=== PATIENT | female | born 1985 | race Hispanic/Latino ===

== ENCOUNTER 2016-11-01 06:42 | Inpatient (IN) | payer MEDICAID ==
[~2016-11-01] VITALS: Ht 147.3 cm; Wt 90.9 kg
[~2016-11-01 06:42] MED LIST: Carboprost 250 mCg/mL Inj IM PRN; Hemorrhage Kit, Post Partum XX ONE; Lactated Ringer's 1,000 ML IV SCH; Lidocaine 2% 5 mL Topical Jelly MUC_MEMBRM ONE; Methylergonovine 0.2 mg/mL Inj IM PRN; Oxytocin 10 Unit/mL Inj IM PRN; PREN-54 PO; Sodium Citrate-Citric Acid 30 mL Solution PO SCH
[2016-11-01] MEDS ORDERED: CeFAZolin Inj 2 GM in IV Premix 1 EACH IV ONE (07:10)
[2016-11-01] MEDS ORDERED: Atropine 0.4 mg/mL Inj IV PRN (07:15)
[2016-11-01] MEDS ORDERED: MetoCLOpramide 5 mg/mL 2 mL Inj IVPUSH PRN (07:15)
[2016-11-01] MEDS ORDERED: EPHEDrine Sulfate 50 mg/mL Inj IVPUSH PRN ×2 (07:15→08:50)
[2016-11-01] MEDS ORDERED: Ondansetron 2 mg/mL 2 mL Inj IVPUSH PRN (07:15)
[2016-11-01] MEDS ORDERED: fentaNYL-PF 50 mCg/mL 2 mL Inj IVPUSH PRN (07:15)
[2016-11-01] MEDS ORDERED: Morphine PF 1 mg/mL 10 mL Inj ONE (07:31)
[2016-11-01 07:40] LABS: Mean Corpuscular Hemoglobin 30.1 pg (27.0-35.0); Mean Corpuscular Volume 89.1 fL (81-100)
--- NOTE | 2016-11-01 07:49 | PCM.HPOB ---
Subjective Referring Provider: Admitting Physician: Jemima Castanon MD Primary Care Physician: Nopcp Attending Physician: Jemima Castanon MD Chief Complaint Admit for Primary Delivery History of Present History of Present Illness Belkys is a 31 y/o 4 para 2-1-0-3 who is currently at 38weeks gestation with a history of gestational diabetes which is now controlled on metformin and Lantus insulin. She has been followed by Dr. Carrasquillo at the [facility] and he has recommended that she have a primary delivery due to macrosomia and polyhydramnios. He recommended delivery at 38 weeks gestation. She has a history of a previous maternal atrial septal defect but has had no problems with her previous vaginal deliveries. She's had gestational hypertension with her past pregnancies. Her blood pressures during this so far have been normal. She is scheduled for a primary low transverse delivery with bilateral tubal ligation on 11/01/2016. Past Medical History Obstetrical History: see [employer] Record Gynecologic History: see [employer] Record Medical History: see [employer] Record Surgical History: none Hx Tobacco Use: No Hx Alcohol Use: No Hx Substance Use: No Past Family History Living Arrangement: with Family Allergy Coded Allergies: No Known Allergies (Verified , 08/21/14) Exam Constitutional: Well-developed, Well-nourished HEENT: Atraumatic Lungs: Clear to Auscultation Heart: Exam Unremarkable Abdomen: Gravid Neurological/Psychiatric: Alert, Oriented X3, Cooperative, No Acute Distress Labs/Diagnostics Maternal Blood Type: O (Positive) Antibody Screen: Negative Group B Strep Results: Positive Rubella: Immune Additional Information HIV negative, Hep C Negative, Hep B sag negative, TSH 0.983, Varicella non- immune OB Intrapartum Assessment/Plan Problems: (1) Macrosomia affecting management of mother Plan: Plan for primary delivery per [facility] recommendations for Macrosomia , Polyhydramnios and GDM. Status: Acute ICD Code: O36.60X0 (2) GDM (gestational diabetes mellitus) Status: Acute ICD Code: O24.419 (3) Polyhydramnios affecting Status: Acute ICD Code: O40.9XX0 Jemima Castanon MD November 01, 2016 07:49
[2016-11-01] MEDS: Sodium Citrate-Citric Acid 15 mL Solution PO SCH (07:54)
[2016-11-01] MEDS ORDERED: Morphine PF 1 mg/mL 10 mL Inj INTRATHEC ONE (08:10)
[2016-11-01] MEDS ORDERED: Lactated Ringer's 1,000 ML IV PRN (08:48)
--- NOTE | 2016-11-01 08:48 | PCM.HPANE ---
Patient Data Surgeon Admitting Provider:Jemima Castanon MD Attending Provider:Jemima Castanon MD Primary Care Physician:Cristóbal Other Provider:Xavi Solis Anesthesia Reason for Visit repeat section with tubal repeat section with tubal Ht/WT & BMI Body Mass Index Allergies Coded Allergies: No Known Allergies (Verified , 08/21/14) Past Anesthesia History Anesthesia History: Denies:: Abnormal Airway, Anesthesia Reactions, Difficult Intubation, Fam Anesthesia Reaction, Fam Malignant Hypertherm, Malignant Hyperthermia Diabetes History Hx Diabetes?: No MRSA MRSA: No Medications Hypertension Medication: No Home Meds Incl Beta Annel: No Reported Medications Vit #76/Iron,Carb/FA (Prenatabs Rx Tablet)1 Each Tablet1 Each PO 09/17/14 History History of ENT Problems?: No HEENT History: Denies:: Abnormal Airway Cataracts Difficult Intubation Dysphagia Glaucoma Hearing Problem Sinus Problem TMJ Denture Type: None Teeth Condition: Within Normal Limits Hx of Heart Problems?: No Cardiovascular History: Positive for:: Hypertension Denies:: Congestive Heart Failure Other Cardiac History: s/p ASD closure 2001, nl function on echo Hx of Respiratory Problem?: No Respiratory History: Denies:: Tuberculosis Hx Neurologic Problems?: No Hx of GI Problems?: No Hx of Problems?: No Female Hx: Positive for:: Currently Hx Musculoskeletal Problems?: No Hx of Psycho/Social Problems?: No Hx Surgeries?: Yes (heart murmur surgery) Hx Diabetes: No Hx Alcohol Use: NoHx Substance Use: No Smoking Status: Never Smoker Have You Smoked inLast 12 mo: No Stop/Bang Treated for Sleep Apnea?: No Do You Have a CPAP Machine?: No S-Snoring: Do You Snore Loudly: Yes T-Tired: feel tired, fatigued: No O-Obsered: Observed not breath: No P-Blood Pressure: treated: Yes B- Body Mass Index > 35 kg/m2: Yes A- Age over 50: No N- Neck Large Circumference: No G- Gender Male: No Risk Assessment Category Category 1A: Patient has history of documented sleep apnea, and HAS NOT received any narcotic, sedative or anesthesia administration during this stay. Category 1B: Patient has history of documented sleep apnea, and HAS received any narcotic , sedative or anesthesia administration during this stay Category 2: Patient has SUSPECTED Obstructive Sleep Apnea, and HAS received any narcotic , sedative or anesthesia administration during this stay. Category 3: Patient has SUSPECTED Obstructive Sleep Apnea and HAS NOT received narcotic, sedative or anesthesia administration during this stay. Category 4: Outpatient in Procedural Areas with known sleep apnea or who screen positive for High Risk via the STOP/BANG questionnaire. Exam Exam General Appearance: Alert, Oriented X3, Cooperative HEENT/AIRWAY: MP 2 Lungs: Clear to Auscultation Heart: Exam Unremarkable, Regular Rate/Rhythm Plan Impression Patient chart reviewed, patient interviewed and anesthestic plan with risks, benefits, and alternatives discussed, and informed consent obtained. ASA Physical Status: ASA2 Mod Systemic Disease Anesthetic Plan: Epidural Bene/Risks/Altern/Consents: Yes HP Complete Prior to Induction: Yes Johnny Camacho DO November 01, 2016 07:18
--- NOTE | 2016-11-01 09:32 | PCM.SURGPO ---
Immediate Operative Note Date of Surgery: November 01, 2016 Pre Operative Diagnosis Macrosomia Polyhydramnios GDM 38 weeks Post Operative Diagnosis Macrosomia Polyhydramnios GDM 38 weeks Procedure Primary Low transverse Bilateral tubal ligation (using bilateral salpingectomy) Surgeon and Refrigeration Mechanic Helper Surgeon: Jemima Castanon MD Assistants: Leora Zelaya MD Findings Normal appearing uterus, Fallopian tubes and ovaries Complications There were no periprocedural complications identified. Surgical Specimen Removed: Yes Specimen sent to Pathology: Yes Surgical Specimen description: Left and Right Fallopian tube Anesthetic Administered: Other Grafts, Implants: None (Spinal) Output, Estimated Blood Loss: 600 Blood Admin during surgery: No Jemima Castanon MD November 01, 2016 09:32
[2016-11-01] MEDS ORDERED: Methylergonovine 0.2 mg/mL Inj IM PRN (09:35)
[2016-11-01] MEDS ORDERED: diphenhydrAMINE 50 mg Capsule PO PRN (09:35)
[2016-11-01] MEDS ORDERED: Oxytocin 10 Unit/mL Inj IM PRN (09:35)
[2016-11-01] MEDS ORDERED: LANOlin HPA 7 Gm Ointment TOPICAL PRN (09:35)
[2016-11-01] MEDS ORDERED: Hemorrhage Kit, Post Partum XX ONE (09:35)
[2016-11-01] MEDS ORDERED: hydrOXYzine Pamoate 25 mg Capsule PO PRN (09:35)
[2016-11-01] MEDS ORDERED: Sodium Chloride LOK Flush 10 mL Syringe IVFLUSH PRN (09:35)
[2016-11-01] MEDS ORDERED: Oxytocin 30 Units/500 mL LR 30 UNITS in IV Premix 1 EACH IV PRN (09:35)
[2016-11-01] MEDS ORDERED: Carboprost 250 mCg/mL Inj IM PRN (09:35)
--- NOTE | 2016-11-01 09:51 | OP ---
[address] [address] OPERATIVE REPORT PATIENT: JUSTIN WALL : 1985 MR#: [id number] ADMIT: 11/01/2016 JOB ID: [id number] DATE OF SURGERY: 11/01/2016 PREOPERATIVE DIAGNOSIS(ES): 1. Suspected macrosomia. 2. Polyhydramnios. 3. Gestational diabetes on insulin. 4. At 38 weeks gestation. POSTOPERATIVE DIAGNOSIS(ES): 1. Suspected macrosomia. 2. Polyhydramnios. 3. Gestational diabetes on insulin. 4. At 38 weeks gestation. 5. Sterilization. SURGEON: Jemima Castanon MD PERSONAL INJURY LEGAL ASSISTANT: MD Dr. Leora Seymour was necessary for the procedure to help with exposure and delivery of the infant. PROCEDURE PERFORMED: 1. Primary low transverse delivery. 2. Bilateral tubal ligation. ANESTHESIA: Spinal. ESTIMATED BLOOD LOSS: 600 mL. COMPLICATIONS: None. PATHOLOGY SENT: Right and left fallopian tubes. FINDINGS: At time of surgery a female in a cephalic presentation. There was a single body cord that was easily reduced. There was a large amount of amniotic fluid at delivery. Otherwise normal-appearing uterus, fallopian tubes, and ovaries bilaterally. INDICATIONS FOR PROCEDURE: The patient is a 31-year-old 4, para 2, 1-0-3 at 38 weeks gestation with suspected macrosomia, polyhydramnios, and gestational diabetes on insulin. Maternal Medicine recommended delivery secondary to macrosomia. PROCEDURE: The patient was taken to the operative room, where her spinal anesthesia was found be adequate. She was placed in a lithotomy position in a leftward tilt and prepared and draped in normal sterile fashion. A Pfannenstiel skin incision was made with a scalpel. This was carried down to the underlying fascia with the Bovie cautery. The fascia was nicked in the midline and the fascia incision was extended laterally with the Grayson scissors. The underlying rectus muscle was dissected off with blunt and sharp dissection. The peritoneum was identified and entered sharply with the Metzenbaum scissors. This incision was extended with gentle traction. The lower uterine segment was identified. The bladder flap was created and the uterus incised in a low transverse fashion with the scalpel. The infant was delivered in a cephalic presentation without difficulty. The cord was doubly clamped and ligated after 1 minute and handed off to the waiting nurses and respiratory therapist. Cord blood was sent. The placenta was removed manually. The uterus was exteriorized and cleared of all clots and debris. The uterine incision was repaired in a single layer of 0-Vicryl suture running fashion. Good hemostasis was assured. A bilateral salpingectomy was performed. The Fallopian tube was tented up on the right. A defect was made in the mesosalpinx 2 free ties of 0-plain gut suture were used to ligate the tube at the cornua and fimbriated in. At this point, the entire tube was excised. Any bleeding vessels were tied off with 0-plain gut. In a similar fashion, the left fallopian tube was identified, followed out to the fimbriated end and isolated ligated with 0-plain gut suture. The left fallopian tube was excised. Good hemostasis was assured. The uterus was then returned to patient's peritoneal cavity. The pelvis was then irrigated with normal saline. Good hemostasis was assured. The fascia was then reapproximated with 0-Vicryl suture in a running fashion. A subcutaneous layer was closed with 0-plain gut. The skin was closed with 4-0 Monocryl in a subcuticular fashion. Dermabond and Steri-Strips applied. All lap, instrument, and needle counts correct x2 at the end of procedure. Patient was taken to her room, awake and in good condition.
[2016-11-01] MEDS: Lactated Ringer's 1,000 ML IV SCH (10:57)
[2016-11-01] MEDS: oxyCODONE-Acetamin 5-325 mg Tablet PO PRN ×2 (11:37→21:01)
[2016-11-01] MEDS ORDERED: Dexamethasone 4 mg/mL Inj ONE (15:19)
[2016-11-01] MEDS ORDERED: EPHEDrine/NS 5 mg/mL 5 mL Syringe ONE (15:19)
[2016-11-01] MEDS ORDERED: Ondansetron 2 mg/mL 2 mL Inj ONE ×2 (15:19)
[2016-11-01] MEDS ORDERED: Oxytocin 10 Unit/mL Inj ONE (15:19)
[2016-11-01] MEDS ORDERED: Phenylephrine/NS-PF 100 mCg/mL 5 mL Syringe IVPUSH ONE (15:19)
--- NOTE | 2016-11-01 20:44 | PCM.ANEP1 ---
Post Anesthesia Phase 1 PACU Phase 1 Assessment Date of Service: November 01, 2016 Anesthetic Administered: SAB Level of Alertness: Awake, talking FLOREZ's with Equal Strength: No (SAB) Pain: No Pain Scale Score: 0 Nausea or Vomiting: No Cardiovascular Function and Hy: Yes Oxygen Delivery: Room Air Lungs: Clear to Auscultation Complications: No Follow up Care: No Patient Instructions Provided: Yes Johnny Camacho DO November 01, 2016 20:44
[2016-11-02 06:57] LABS: Mean Corpuscular Hemoglobin 30.4 pg (27.0-35.0); Mean Corpuscular Volume 90.9 fL (81-100)
[2016-11-02] MEDS: Ascorbic Acid 500 mg Tablet PO SCH (08:54)
--- NOTE | 2016-11-02 10:51 | PROG NOTE ---
[address] [address] PROGRESS NOTE PATIENT: JUSTIN WALL : 1985 MR#: [id number] ADMIT: 11/01/2016 JOB ID: [id number] DATE: 11/02/2016 SUBJECTIVE: The patient is a 31-year-old G 4, now P 3-1-0-4 female who is postop day one following a primary low-transverse section with tubal ligation that occurred on November 01, 2016 at the recommendations of Maternal Medicine due to suspected macrosomia with polyhydramnios and gestational diabetes. She is doing well this morning. Her pain is well controlled. She is tolerating a regular diet, and voiding and ambulating well on her own. Her Cramer catheter was removed and she has voided without difficulty since that time. She denies any nausea or vomiting. Her lochia is minimal. Objectively, her blood pressure is 124/73, her heart rate is 78, her respiratory rate is 16. Her temperature is 98.4. In general, she is awake, alert, oriented. She is in no acute distress. She is ambulating in the room when I am seeing her. The remainder of her physical examination was deferred. LABORATORY DATA: At the time of admission, her white count was 10.4, hemoglobin is 11.6. Her platelets are 201. By postoperative day #1, her white count is 10.7, her hemoglobin is 9.7, and her platelets are 182. ASSESSMENT: This is a 31-year-old, now G 4, P 3-1-0-4 female postoperative day #1 following a primary low transverse section with tubal ligation as recommended by Maternal Medicine due to suspected macrosomia, polyhydramnios and gestational diabetes mellitus. PLAN: At this point in time, the patient is doing very well. Her pain was well controlled and she is meeting all postoperative goals. She is voiding without difficulty. Her laboratory data shows a blood type of O positive, antibody screen negative. She is rubella immune and varicella nonimmune. We will plan to give her varicella vaccine at six weeks and a booster following this. We will continue to monitor her throughout today and plan to discharge her home tomorrow. She is otherwise stable at this point in time.
[2016-11-02] MEDS: oxyCODONE-Acetamin 5-325 mg Tablet PO PRN (15:13)
--- NOTE | 2016-11-02 16:09 | PATH ---
SURGICAL PATHOLOGY Attending Physician:Jemima Castanon, CASE STATUS: Signed Out PATIENT NAME: JUSTIN MUSE PID: [id number] : 1985 DATE COLLECTED:11/01/2016 21:13 SPECIMEN: 1: Fallopian Tube, Sterilization 2: Fallopian Tube, Sterilization CLINICAL HISTORY: DESIRES BILATERAL TUBAL LIGATION FOR STERILIZATION, 31 YEAR OLD WITH CAESAREAN SECTION, LMP 02/08/16 1). LEFT FALLOPIAN TUBE SEGMENT 2). RIGHT FALLOPIAN TUBE SEGMENT FINAL DIAGNOSIS: 1.LEFT FALLOPIAN TUBE SEGMENT: SEGMENT OF FALLOPIAN TUBE WITH NO PATHOLOGIC ALTERATIONS. 2.RIGHT FALLOPIAN TUBE SEGMENT: SEGMENT OF FALLOPIAN TUBE WITH NO PATHOLOGIC ALTERATIONS. ICD10 CODE Z30.2 GROSS DESCRIPTION: The specimen is received in 2 containers not labeled as to the fixative and labeled with the patient's name. 1). The specimen is sublabeled "left fallopian tube segment" and consists of a 4.0 x 0.7 x 0.6 CM cylindrical -shaped portion of tissue. The specimen is inked blue. 4 media sales representative sections are submitted in cassette 1A. 2). The specimen is sublabeled "right fallopian tube segment" and consists of a 3.5 x 1.0 x 0.8 CM cylindrical-shaped portion of tissue. The specimen is inked blue. 4 media sales representative sections are submitted in cassette 2A. 11/01/2016 DAC MICRO DESCRIPTION: See diagnosis. ICD-9 CODES: CPT CODES: 1: 07364 2: 80681 Electronically Signed Out Lyudmila Casey MD [facility] [address], [place] [address] Technical component performed at [facility], [address], [place], [address]
[2016-11-03] MEDS: Lactated Ringer's 1,000 ML IV SCH (01:33)
[2016-11-03] MEDS: Sodium Citrate-Citric Acid 15 mL Solution PO SCH (06:00)
[2016-11-03] MEDS: Ascorbic Acid 500 mg Tablet PO SCH (08:30)
[2016-11-03] MEDS: oxyCODONE-Acetamin 5-325 mg Tablet PO PRN ×2 (08:30→14:51)
--- NOTE | 2016-11-03 09:41 | PCM.PNOBPP ---
Subjective Date of Service November 03, 2016 Post : Primary Ceserean Delivery Visit History Belkys is a 31 y/o 4 para 2-1-0-3 who is currently at 38weeks gestation with a history of gestational diabetes which is now controlled on metformin and Lantus insulin. She has been followed by Dr. Carrasquillo at the [facility] and he has recommended that she have a primary delivery due to macrosomia and polyhydramnios. He recommended delivery at 38 weeks gestation. She has a history of a previous maternal atrial septal defect but has had no problems with her previous vaginal deliveries. She's had gestational hypertension with her past pregnancies. Her blood pressures during this so far have been normal. She had a primary low transverse delivery with bilateral tubal ligation on 2016. Subjective Patient has no complaints today. She is doing well. She has minimal pain reports that it is well controlled with ibuprofen and occasionally she will use the Percocet. She is ambulating and voiding without difficulty. Lochia: Normal Pain Management: PO pain meds Gastrointestinal: Good Appetite, No N/V Postop Activity: Ambulating Independently Group B Strep Results: Positive Rubella: Immune Blood Type: O (Positive) Labs Laboratory Tests 11/02/16 06:40: White Blood Count 10.7, Red Blood Count 3.19, Hemoglobin 9.7, Hematocrit 29.0, Mean Corpuscular Volume 90.9, Mean Corpuscular Hemoglobin 30.4, Mean Corpuscular Hemoglobin Concent 33.4, Red Cell Distribution Width 13.2, Platelet Count 182 Exam Vital Signs Vital Signs: VS reviewed, stable Exam Abdomen: Fundus firm Extremities: No cords Lungs: Clear to Auscultation Heart: Exam Unremarkable General: Alert, Oriented X3, Cooperative, No Acute Distress Surgical Wound : Incision General Appearence: Intact, No Erythemia, No Discharge OB Post Assessment/Plan Problems: (1) Macrosomia affecting management of mother Status: Acute ICD Code: O36.60X0 (2) GDM (gestational diabetes mellitus) Status: Acute ICD Code: O24.419 (3) Polyhydramnios affecting Status: Acute ICD Code: O40.9XX0 (4) care and examination immediately after delivery Plan: She has done well . Her fasting blood glucose value on postoperative day #1 was less than 90 so no further blood glucose values were obtained. Her blood pressures were normal and she is doing well. Status: Acute ICD Code: Z39.0 Pain Evaluation: Adequate Pain Control Post plan: Continue routine post care, Anticipate discharge home today Jemima Castanon MD November 03, 2016 09:41
--- NOTE | 2016-11-03 09:44 | PCM.DC.OB ---
Obstetrical Discharge Summary Date of Service November 03, 2016 Date of hospital admission November 01, 2016 at 06:42 Date of Discharge: November 03, 2016 Providers Admitting Physician: Jemima Castanon MD Primary Care Physician: Nopdaly Attending Physician: Jemima Castanon MD Problems: (1) Macrosomia affecting management of mother Status: Acute ICD Code: O36.60X0 (2) GDM (gestational diabetes mellitus) Qualifiers: Gestational diabetes mellitus control: insulin-controlled Status: Acute ICD Code: O24.419 (3) Polyhydramnios affecting Status: Acute ICD Code: O40.9XX0 (4) care and examination immediately after delivery Status: Acute ICD Code: Z39.0 Invasive procedures A primary low transverse delivery with bilateral tubal ligation on 04/2017 Brief History and Physical: Belkys is a 31 y/o 4 para 2-1-0-3 who is currently at 38weeks gestation with a history of gestational diabetes which is now controlled on metformin and Lantus insulin. She has been followed by Dr. Carrasquillo at the [facility] and he has recommended that she have a primary delivery due to macrosomia and polyhydramnios. He recommended delivery at 38 weeks gestation. She has a history of a previous maternal atrial septal defect but has had no problems with her previous vaginal deliveries. She's had gestational hypertension with her past pregnancies. Her blood pressures during this so far have been normal. She had a primary low transverse delivery with bilateral tubal ligation on 2016. Her course was uneventful and her blood glucose day #1 was less than 80. She did not have any blood pressure issues and was ambulating, voiding and tolerating regular diet at the time of discharge. Hospital Course: Her course was uneventful. Vit #76/Iron,Carb/FA (Prenatabs Rx Tablet) 1 Each Tablet 1 EACH PO ( Reported) Disposition Home Discharge Activity-General: Pelvic Rest for 6 weeks, Try not to overdue, Be up and about Jemima Castanon MD November 03, 2016 09:44
[2016-11-03] MEDS ORDERED: FERR-74 PO (09:46)
[2016-11-03] MEDS ORDERED: OXYC1TAB24 PO (09:46)
[2016-11-03] MEDS ORDERED: IBUP800T28 PO (09:46)
[2016-11-03] MEDS ORDERED: Ascorbic Acid PO (09:46)
[2016-11-03] MEDS ORDERED: DOCU-41 PO (09:46)
--- NOTE | 2016-11-03 09:47 | PCM.DIOB ---
Obstetrical Disch Instruction Dates of Hospitalization Date of Hospital Admission November 01, 2016 at 06:42 Providers Admitting Physician: Jemima Castanon MD Primary Care Physician: Nopcp Attending Physician: Jemima Castanon MD Discharge Diagnosis Post Operative diagnosis Macrosomia Polyhydramnios GDM 38 weeks Problems: (1) Macrosomia affecting management of mother Status: Acute ICD Code: O36.60X0 (2) GDM (gestational diabetes mellitus) Qualifiers: Gestational diabetes mellitus control: insulin-controlled Status: Acute ICD Code: O24.419 (3) Polyhydramnios affecting Status: Acute ICD Code: O40.9XX0 (4) care and examination immediately after delivery Status: Acute ICD Code: Z39.0 Diet Discharge Diet: No restrictions Activity Discharge Activity-General: Pelvic Rest for 6 weeks, Try not to overdue, Be up and about, No lifting >10 pounds for 4-6 weeks Dressing and Incisional Care Hygiene: May shower, Wash incision with soap & water, DO NOT soak incision under water Follow Up Plan Follow-up appointment: Weeks (2) Call your provider for: Fever or Chills, Shortness of breath, Heavy vaginal bleeding, Red painful breasts, Other (increased redness or drainage from your incision.) Jemima Castanon MD November 03, 2016 09:47
[2016-11-03 12:50] VITALS: BP 128/71; PULSE 69; RESP 16
== END 2016-11-03 15:20 | disposition home or self-care (01) | DRG 540 ==
LOC: FBC 06:42 → EDSTATUS 09:15
PROVIDERS: ADMIT Obstetrics & Gynecology; ATTEND Obstetrics & Gynecology
PROC: 0UT70ZZ Resection of Bilateral Fallopian Tubes, Open Approach (ICD-10-PCS; 2016-11-01)
PROC: 10D00Z1 Extraction of Products of Conception, Low, Open Approach (ICD-10-PCS; principal; 2016-11-01 07:15)
DX: O36.63X0 Maternal care for excessive fetal growth, third trimester, not applicable or unspecified (principal); O40.3XX0 Polyhydramnios, third trimester, not applicable or unspecified; O24.424 Gestational diabetes mellitus in childbirth, insulin controlled; Z3A.38 38 weeks gestation of pregnancy; Z37.0 Single live birth; Z30.2 Encounter for sterilization; O34.211 Maternal care for low transverse scar from previous cesarean delivery